=== PATIENT | female | born 1965 | race Caucasian/White ===

== ENCOUNTER → 2017-09-30 19:01 | Outpatient (CLI) | payer BC, SELFPAY ==
[2017-10-05 15:20] LABS: HPV Reflexed? NOT INDICATED
== END ==
PROVIDERS: Visit Provider Obstetrics & Gynecology
DX: Z12.4 Encounter for screening for malignant neoplasm of cervix (principal)
CPT/HCPCS: 88175; G0145

== ENCOUNTER → 2018-10-22 | Outpatient (CLI) | payer BC, SELFPAY ==
[2018-10-29 12:29] LABS: HPV Reflexed? NOT INDICATED
== END | disposition home or self-care (01) ==
LOC: LABSPEC 16:29
PROVIDERS: Referring Provider Obstetrics & Gynecology; Visit Provider Obstetrics & Gynecology
DX: Z12.4 Encounter for screening for malignant neoplasm of cervix (principal)
CPT/HCPCS: 88175; G0145